=== PATIENT | female | born 1935 | race Caucasian/White ===

== ENCOUNTER 2016-11-10 08:55 | Inpatient (IN) | payer MEDICARE ==
[~2016-11-10] VITALS: Ht 165.1 cm; Wt 65.3 kg
[2016-11-10 09:45] LABS: HEMOGLOBIN 12.7 gm/dl (12.3-15.3); RED BLOOD COUNT 4.12 M/UL (4.00-5.10); WHITE BLOOD COUNT 9.6 K/UL (4.5-11.0)
[2016-11-10 10:02] LABS: BUN/CREATININE RATIO 20 (0-10)
[2016-11-10] MEDS ORDERED: MULTIVITAMINS1 EAC1 PO (21:09)
[2016-11-11 04:00] LABS: HEMOGLOBIN 12.3 gm/dl (12.3-15.3); RED BLOOD COUNT 4.01 M/UL (4.00-5.10); WHITE BLOOD COUNT 9.5 K/UL (4.5-11.0)
[2016-11-11 04:18] LABS: BUN/CREATININE RATIO 16 (0-10)
[2016-11-12 05:39] LABS: HEMOGLOBIN 11.7 gm/dl (12.3-15.3); RED BLOOD COUNT 3.84 M/UL (4.00-5.10); WHITE BLOOD COUNT 9.3 K/UL (4.5-11.0)
[2016-11-12 05:57] LABS: BUN/CREATININE RATIO 18 (0-10)
[2016-11-14] MEDS ORDERED: ROBITUSSIN200 MG/10 PO (10:32)
[2016-11-14] MEDS ORDERED: SOTALOL80 MG PO (10:34)
[2016-11-14] MEDS ORDERED: ELIQUIS2.5 MG PO (10:35)
[2016-11-14] MEDS ORDERED: ASPIRIN CHEWABL81 MG PO (10:37)
[2016-11-14] MEDS ORDERED: TESSALON PERLE100 MG PO (10:37)
[2016-11-14] MEDS ORDERED: LEVAQUIN500 MG PO (10:38)
[2016-11-14] MEDS ORDERED: VENTOLIN HFA 66.7 GM INH (11:27)
== END 2016-11-14 12:25 | disposition home or self-care (01) | DRG 871 ==
LOC: ER1 08:55 → ZEROF 12:14 → CCU 12:14 → PROG CARE 12:14 → CCU 21:19 → PROG CARE 11-11 19:04
PROVIDERS: Family Medicine; Internal Medicine Cardiovascular Disease; Physician Assistant; ADMIT Internal Medicine
DX: A41.9 Sepsis, unspecified organism (principal); J96.01 Acute respiratory failure with hypoxia; J18.9 Pneumonia, unspecified organism; G93.41 Metabolic encephalopathy; N39.0 Urinary tract infection, site not specified; E87.2 Acidosis; E87.1 Hypo-osmolality and hyponatremia; R65.20 Severe sepsis without septic shock; B96.5 Pseudomonas (aeruginosa) (mallei) (pseudomallei) as the cause of diseases classified elsewhere; I34.1 Nonrheumatic mitral (valve) prolapse; I48.0 Paroxysmal atrial fibrillation; H91.90 Unspecified hearing loss, unspecified ear; Z90.49 Acquired absence of other specified parts of digestive tract; Z98.890 Other specified postprocedural states; Z80.3 Family history of malignant neoplasm of breast; Z80.1 Family history of malignant neoplasm of trachea, bronchus and lung
CPT/HCPCS: ECHO; 36415; 36600; 70450; 70551; 71010; 80048; 80053; 80202; 81001; 82550; 82553; 82803; 83605; 83735; 83874; 84436; 84443; 84480; 84484; 85025; 85027; 85610; 86140; 87040; 87077; 87086; 87186; 93005; 93306; 94640; 94664; 96372; 96374; 96375; 99291; J0456; J0696; J1650; J1956; J3370; J7030; J7050; J7070

== ENCOUNTER → 2016-11-19 | Outpatient (CLI) | payer MEDICARE ==
[~2016-11-19] MED LIST: ASPIRIN CHEWABL81 MG PO; ELIQUIS2.5 MG PO; LEVAQUIN500 MG PO; MULTIVITAMINS1 EAC1 PO; ROBITUSSIN200 MG/10 PO; SOTALOL80 MG PO; TESSALON PERLE100 MG PO; VENTOLIN HFA 66.7 GM INH
[2016-11-19 13:45] LABS: BUN/CREATININE RATIO 18 (0-10)
== END ==
LOC: LAB 12:19
PROVIDERS: Family Medicine
DX: R05 Cough (principal); M81.0 Age-related osteoporosis without current pathological fracture; R53.83 Other fatigue; R35.0 Frequency of micturition; J90 Pleural effusion, not elsewhere classified; R91.8 Other nonspecific abnormal finding of lung field
CPT/HCPCS: 36415; 71020; 80053; 87086

== ENCOUNTER → 2016-11-24 | Outpatient (CLI) | payer MEDICARE | LOC: KOH-I 13:38 | DX: R91.8 Other nonspecific abnormal finding of lung field (principal); R59.9 Enlarged lymph nodes, unspecified; J98.11 Atelectasis | CPT/HCPCS: 71250 ==

== ENCOUNTER → 2020-07-26 | Outpatient (CLI) | payer MEDICARE, OTHER ==
[~2020-07-26] MED LIST changes: +ATORVASTATIN CA20 MG PO; +BETAPACE 80MG T80 MG PO; +BIOTIN800 MCG PO; +EUTHYROX50 MCG PO; +KLOR-CON 1010 MEQ PO; +LASIX20 MG PO; +PLAVIX75 MG PO
== END ==
LOC: HEART 5 14:01
DX: R06.02 Shortness of breath (principal); R94.2 Abnormal results of pulmonary function studies
CPT/HCPCS: 94010

== ENCOUNTER → 2020-07-31 | Outpatient (CLI) | payer MEDICARE, OTHER | LOC: RAD 14:15 | DX: I34.0 Nonrheumatic mitral (valve) insufficiency (principal) | CPT/HCPCS: 71046 ==

== ENCOUNTER 2020-08-28 15:28 | Emergency (ER) | payer MEDICARE, OTHER ==
[~2020-08-28 15:28] MED LIST changes: -BIOTIN800 MCG PO; -KLOR-CON 1010 MEQ PO; -LASIX20 MG PO; -PLAVIX75 MG PO
[2020-11-23] MEDS ORDERED: BIOTIN800 MCG PO (00:46)
== END 2020-08-28 21:30 | disposition home or self-care (01) ==
LOC: ER1 15:28
DX: U07.1 COVID-19 (principal); E03.9 Hypothyroidism, unspecified; J02.0 Streptococcal pharyngitis; J40 Bronchitis, not specified as acute or chronic; Z85.3 Personal history of malignant neoplasm of breast; Z95.4 Presence of other heart-valve replacement
CPT/HCPCS: 0240U; 71045; 81001; 87081; 87880; 99283; M0239

== ENCOUNTER 2020-09-06 03:58 | Emergency (ER) | payer MEDICARE, OTHER ==
[2020-09-06 05:23] LABS: HEMOGLOBIN 13.7 gm/dl (12.3-15.3); RED BLOOD COUNT 4.39 M/UL (4.00-5.10); WHITE BLOOD COUNT 5.1 K/UL (4.5-11.0)
[2020-09-06 05:29] LABS: BUN/CREATININE RATIO 27 (0-10)
[2020-11-23] MEDS ORDERED: BIOTIN800 MCG PO (00:46)
== END 2020-09-06 07:20 | disposition home or self-care (01) ==
LOC: ER1 03:58
PROVIDERS: Family Medicine
DX: U07.1 COVID-19 (principal); I51.9 Heart disease, unspecified; Z90.710 Acquired absence of both cervix and uterus; Z85.3 Personal history of malignant neoplasm of breast
CPT/HCPCS: 71045; 80053; 82550; 82553; 83874; 84484; 85025; 93005; 99285

== ENCOUNTER 2020-11-23 03:57 | Observation (INO) | payer MEDICARE ==
[~2020-11-23] VITALS: Ht 165.1 cm; Wt 66.3 kg
[~2020-11-23 03:57] MED LIST changes: +BIOTIN800 MCG PO
[2020-11-23 04:58] LABS: HEMOGLOBIN 13.5 gm/dl (12.3-15.3); RED BLOOD COUNT 4.31 M/UL (4.00-5.10); WHITE BLOOD COUNT 5.8 K/UL (4.5-11.0)
[2020-11-23 06:40] LABS: BUN/CREATININE RATIO 26 (0-10)
[2020-11-23] MEDS ORDERED: KLOR-CON 1010 MEQ PO (08:07)
[2020-11-23] MEDS ORDERED: PLAVIX75 MG PO (08:07)
[2020-11-23] MEDS ORDERED: LASIX20 MG PO (08:08)
[2020-11-23] MEDS ORDERED: ELIQUIS2.5 MG PO (08:08)
[2020-11-23 14:56] LABS: HEMOGLOBIN 12.4 gm/dl (12.3-15.3); RED BLOOD COUNT 3.98 M/UL (4.00-5.10)
[2020-11-23 14:57] LABS: WHITE BLOOD COUNT 4.3 K/UL (4.5-11.0)
[2020-11-23] MEDS ORDERED: BETAPACE 80MG T80 MG PO (17:48)
== END 2020-11-23 19:30 | disposition home or self-care (01) ==
LOC: ER1 03:57 → CDU 06:08 → PROG CARE 08:08 → CDU 08:08 → PROG CARE 08:08 → CDU 19:30
PROVIDERS: Emergency Medicine; Internal Medicine; ADMIT Internal Medicine
DX: I48.0 Paroxysmal atrial fibrillation (principal); I50.32 Chronic diastolic (congestive) heart failure; I34.0 Nonrheumatic mitral (valve) insufficiency; E03.9 Hypothyroidism, unspecified; Z20.822 Contact with and (suspected) exposure to COVID-19; E78.5 Hyperlipidemia, unspecified; Z79.01 Long term (current) use of anticoagulants; Z90.710 Acquired absence of both cervix and uterus; Z82.49 Family history of ischemic heart disease and other diseases of the circulatory system; Z85.3 Personal history of malignant neoplasm of breast; Z86.16 Personal history of COVID-19; I25.2 Old myocardial infarction
CPT/HCPCS: ECHO; 36415; 71045; 80053; 82550; 82553; 83605; 83690; 84484; 85025; 86140; 93005; 93306; 96374; 96376; 99285; G0378; U0002

== ENCOUNTER 2021-06-24 13:24 | Emergency (ER) | payer MEDICARE ==
[~2021-06-24 13:24] MED LIST changes: +KLOR-CON 1010 MEQ PO; +LASIX20 MG PO; +PLAVIX75 MG PO
[2021-06-24 13:48] LABS: HEMOGLOBIN 14.8 gm/dl (12.3-15.3); RED BLOOD COUNT 4.61 M/UL (4.00-5.10); WHITE BLOOD COUNT 6.7 K/UL (4.5-11.0)
[2021-06-24 14:09] LABS: BUN/CREATININE RATIO 23 (0-10)
== END 2021-06-24 17:42 | disposition home or self-care (01) ==
LOC: ER1 13:24
PROVIDERS: Family Medicine
DX: R07.2 Precordial pain (principal); I48.91 Unspecified atrial fibrillation; Z79.01 Long term (current) use of anticoagulants; Z95.4 Presence of other heart-valve replacement; Z51.81 Encounter for therapeutic drug level monitoring
CPT/HCPCS: 71045; 80053; 82550; 82553; 83690; 83874; 84484; 85025; 85610; 93005; 99285

== ENCOUNTER 2021-07-01 16:56 | Emergency (ER) | payer MEDICARE ==
[2021-07-01 21:11] LABS: HEMOGLOBIN 14.9 gm/dl (12.3-15.3); RED BLOOD COUNT 4.61 M/UL (4.00-5.10); WHITE BLOOD COUNT 6.6 K/UL (4.5-11.0)
[2021-07-01 21:45] LABS: BUN/CREATININE RATIO 30 (0-10)
== END 2021-07-02 01:30 | disposition home or self-care (01) ==
LOC: ER1 16:56
PROVIDERS: Physician Assistant
DX: R07.89 Other chest pain (principal); I48.91 Unspecified atrial fibrillation; Z85.3 Personal history of malignant neoplasm of breast; Z79.01 Long term (current) use of anticoagulants
CPT/HCPCS: 71045; 80053; 82550; 82553; 83874; 84484; 85025; 93005; 99285

== ENCOUNTER 2021-11-19 05:58 | Emergency (ER) | payer MEDICARE ==
[~2021-11-19 05:58] MED LIST changes: +CEFUROXIME250 MG PO; -EUTHYROX50 MCG PO; +EUTHYROX75 MCG PO; +FAMOTIDINE20 MG PO; +FLONASE 0.05% N16 GM
[2021-11-19 06:27] LABS: HEMOGLOBIN 14.4 gm/dl (12.3-15.3); RED BLOOD COUNT 4.59 M/UL (4.00-5.10); WHITE BLOOD COUNT 5.1 K/UL (4.5-11.0)
[2021-11-19 07:01] LABS: BUN/CREATININE RATIO 19 (0-10)
== END 2021-11-19 12:05 | disposition home or self-care (01) ==
LOC: ER1 05:58
PROVIDERS: Family Medicine
DX: R00.2 Palpitations (principal); I50.9 Heart failure, unspecified; E78.5 Hyperlipidemia, unspecified; I48.91 Unspecified atrial fibrillation; Z86.79 Personal history of other diseases of the circulatory system; E03.9 Hypothyroidism, unspecified; Z79.899 Other long term (current) drug therapy; Z79.01 Long term (current) use of anticoagulants
CPT/HCPCS: 71045; 80053; 82550; 82553; 83735; 84439; 84443; 84484; 85025; 93005; 99285

== ENCOUNTER → 2021-12-11 | Outpatient (CLI) | payer MEDICARE | LOC: HEART 5 12-04 07:30 | DX: I50.30 Unspecified diastolic (congestive) heart failure (principal); I48.0 Paroxysmal atrial fibrillation; R06.02 Shortness of breath ==

== ENCOUNTER 2022-01-17 20:51 | Emergency (ER) | payer MEDICARE ==
[~2022-01-17] VITALS: Ht 165.1 cm; Wt 63.5 kg
[2022-01-17 21:49] LABS: HEMOGLOBIN 13.8 gm/dl (12.3-15.3); RED BLOOD COUNT 4.35 M/UL (4.00-5.10); WHITE BLOOD COUNT 8.5 K/UL (4.5-11.0)
[2022-01-17 22:12] LABS: BUN/CREATININE RATIO 15 (0-10)
== END 2022-01-18 00:15 | disposition home or self-care (01) ==
LOC: ER1 20:51
PROVIDERS: Student in an Organized Health Care Education/Training Program
DX: U07.1 COVID-19 (principal); I11.0 Hypertensive heart disease with heart failure; I50.9 Heart failure, unspecified
CPT/HCPCS: 0240U; 71045; 80053; 82550; 82553; 83880; 84484; 85025; 93005; 99284; M0222